=== PATIENT | male | born 2000 | race Hispanic/Latino ===

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

== ENCOUNTER 2021-10-22 22:11 | Emergency (ER) | payer MEDICAID, OTHER | END 2021-10-22 23:06 | disposition home or self-care (01) | LOC: MADERS 22:11 | DX: R56.9 Unspecified convulsions (principal); Z79.899 Other long term (current) drug therapy | CPT/HCPCS: 99283 ==

== ENCOUNTER 2022-10-27 14:39 | Emergency (ER) | payer OTHER ==
[2022-10-27] MEDS ORDERED: Haloperidol Lactate 5 MG/ML VIAL ONE (15:48)
== END 2022-10-27 16:46 | disposition home or self-care (01) ==
LOC: MADERS 14:39
DX: F30.9 Manic episode, unspecified (principal); F84.0 Autistic disorder
CPT/HCPCS: 96372; 99284; J1630